=== PATIENT | female | born 1975 | race Two or more races ===

== ENCOUNTER 2019-05-09 08:20 | Inpatient (IN) | payer OTHER ==
[~2019-05-09] VITALS: Ht 167.6 cm; Wt 103.0 kg
[2019-05-09 09:00] VITALS: BP 146/96
[2019-05-09] MEDS ORDERED: TRANEXAMIC ACID 3,000 MG in SODIUM CHLORIDE IRRIG SOLUTION 70 ML IR ONE (09:00)
--- NOTE | 2019-05-09 09:00 | NUR ---
MS TAWER NOTESNOTES RECEIVED PT FROM HOME, PT SCHEDULED FOR DAY SURGERY OF RIGHT TOTAL KNEE ARTHROPLASTY, ARRIVED AT THE UNIT AT 0850. PT A/O X4, AMBULATORY, ACCOMPANIED BY MOTHER. FWW AND CANE PRESENT AT BEDSIDE. PT TOLERATING RA, WITH NO ACUTE RESPIRATORY DISTRESS NOTED. PT STATED SHE WAS NPO SINCE MIDNIGHT. PT DENIES ANY PAIN, CHEST PAIN OR ANY OTHER DISCOMFORT AT THE TIME OF ARRIVAL. ADMISSION HISTORY PROVIDED BY PT. PT REFUSES TO HAVE FLU VACCINE, STATED SHE NEVER HAD IT AND PREFERS NOT TO HAVE IT HERE WELL. PT DENIES ANY CONCERNS AND QUESTIONS AT THE MOMENT. VS STABLE AND RECORDED. SORE THROAT PRESENT AND STARTED 2DAYS AGO, OR RNS MADE AWARE WELL. PT ORIENTED TO ROOM, STAFF, ETC. PT KEPT COMFORTABLE IN BED. CALL LIGHT KEPT WITHIN REACH. PT'S BED PLACED IN LOWEST, LOCEKED POSITION WITH SR X2. WILL CONTINUE PLAN OF CARE.
[2019-05-09] MEDS ORDERED: GABA600T12 PO (09:52)
[2019-05-09] MEDS ORDERED: ATEN50TA PO (09:52)
[2019-05-09] MEDS ORDERED: FENO145T35 PO (09:52)
[2019-05-09] MEDS ORDERED: BUPR8TAB4 SL (09:52)
[2019-05-09] MEDS ORDERED: HUM10VIA SQ (09:52)
[2019-05-09] MEDS ORDERED: SIMV-49 PO (09:52)
[2019-05-09] MEDS ORDERED: BACL10TA PO (09:52)
[2019-05-09] MEDS ORDERED: IBUP-1953 PO (09:52)
[2019-05-09] MEDS ORDERED: OMEP20TA5 PO (09:52)
[2019-05-09] MEDS ORDERED: LISI1TAB28 PO (09:52)
[2019-05-09] MEDS ORDERED: BACITRACIN 50000 UNITS/VIAL ONE (10:30)
--- NOTE | 2019-05-09 11:00 | NUR ---
MS RN NOTES PT LEFT TO GO TO OR AT 1050. CONSENTS SIGNED BY PT. MOTHER PRESRNT AT BEDSIDE AND HAS ALL THE BELONGINGS.
[2019-05-09 11:14] LABS: APPEARANCE,URINE Clear (CLEAR); BILIRUBIN,URINE SMALL (NEGATIVE); BLOOD, URINE Negative Ery/uL (NEGATIVE); COLOR,URINE Yellow (YELLOW); KETONES,URINE Negative (NEGATIVE); LEUKOCYTE ESTERASE ,URINE Negative (NEGATIVE); NITRITE, URINE Negative (NEGATIVE); PROTEIN,URINE Negative (NEGATIVE); UGLUCOSE Negative (NEGATIVE); UROBILINOGEN,URINE 0.2 EU/dL (0.2)
[2019-05-09] MEDS ORDERED: MIDAZOLAM HCL 2 MG/2ML VIAL ONE ×3 (11:18→11:34)
[2019-05-09] MEDS ORDERED: FENTANYL PF 100MCG/2ML AMPUL ONE ×2 (11:18→11:34)
[2019-05-09] MEDS ORDERED: ROCURONIUM BROMIDE 50 MG/5 ML ONE (11:18)
[2019-05-09] MEDS ORDERED: BUPIVACAINE 0.5 % PF 150 MG/30 ML VIAL ONE (12:55)
[2019-05-09] MEDS ORDERED: oxyCODONE IR immediate release 5 MG PO PRN (14:00)
--- NOTE | 2019-05-09 14:53 | NUR ---
MS RN NOTES PT JUST GOT BACK FROM ROR/RECOVERY ROOM. VS TAKEN AND RECORDED. PT A/O X4. ON RA WITH NO ACUTE RESPIRATORY DISTRESS NOTED. PT DENIES ANY PAIN OR DISCOMFORT AT THIS MOMENT. WLL CONTINUE TO MONITOR.
--- NOTE | 2019-05-09 14:55 | NUR ---
MS RN NOTES PER DESTINEE/RN AT RR. IV ANTIBIOTIC WAS GIVEN AT 11 AM.
[2019-05-09] MEDS ORDERED: ONDANSETRON HCL/PF 4 MG/2 ML VIAL IVP PRN (15:00)
[2019-05-09] MEDS ORDERED: IV D5/0.45 NACL 1,000 ML IV PRN (15:00)
[2019-05-09] MEDS ORDERED: DOCUSATE SODIUM 250 MG CAPSULE PO PRN (15:00)
[2019-05-09 16:00] VITALS: BP 119/78
[2019-05-09] MEDS ORDERED: DEXTROSE 50%-WATER 50 ML DISP.SYRIN IV PRN (16:00)
[2019-05-09] MEDS ORDERED: *INSULIN REGULAR(HUMULIN R)HUM 100 UNIT/ML VIAL SQ PRN (16:00)
--- NOTE | 2019-05-09 16:30 | NUR ---
MS RN NOTES RECEIVED MEDICINE DILAUDID VIA OPERATING ROOM ASSISTANT PUMP. PT STATED SHE DOESN'T NEED IT AT THE MOMENT. CALLED AND SPOKE TO DR IRIS MD SAID JUST KEEP IT AND PREPARE IT. PT MIGHT BE IN A LOT OF PAIN IN THE MIDDLE OF THE NIGHT. SD/JC MADE AWARE. AWAITING FOR CENTRAL SUPPLY TO DELIVER THE PUMP. PT MADE AWARE.
[2019-05-09] MEDS: IV NS 0.9% 1,000 ML IV PRN (16:47)
[2019-05-09] MEDS ORDERED: BUPRENORPHINE HCL 4 MG SL SCH (17:00)
[2019-05-09] MEDS: BLOOD SUGAR DIAGNOSTIC 1 EACH STRIP VI SCH ×2 (17:04→22:33)
[2019-05-09] MEDS: INSULIN REGULAR, HUMAN 100 UNIT/ML 3 ML VIAL SQ PRN (17:28)
[2019-05-09] MEDS: GABAPENTIN 300 MG CAPSULE PO SCH (17:29)
[2019-05-09] MEDS: HYDROMORPHONE MDV 30 MG in IV NS 0.9% 15 ML, PCA TOTAL VOLUME 1 BAG IV PRN ×3 (18:01)
[2019-05-09] MEDS: INSULIN NPH/REG 70/30 MIX INJ 100 UNIT/ML VIAL SQ SCH (18:26)
--- NOTE | 2019-05-09 18:30 | NUR ---
MS RN NOTES STARTED FIELD TAX AUDITOR PUMP WITH DILAUDID AT 1800.
[2019-05-09 19:02] LABS: CALCIUM, SERUM 8.4 mg/dL (8.5-10.1); CREATININE 0.7 mg/dL (0.6-1.3); MAGNESIUM 1.7 mg/dL (1.8-2.4); PHOSPHORUS 2.9 mg/dL (2.5-4.9); POTASSIUM 3.1 mmol/L (3.5-5.1)
--- NOTE | 2019-05-09 19:46 | NUR ---
MS RN CLOSING NOTES PT A/O X4,BED REST AT THIS MOMENT, MOTHER AT BEDSIDE.CPM MACHINE AND KNEE BRACE FROM PT AT BEDSIDE. PT TOLERATING RA, WITH NO ACUTE RESPIRATORY DISTRESS NOTED. PT ON ANNUAL GIVING MANAGER PUMP DILAUDID 0.2MG WITH 10MIN LOCK OUT; TOTAL OF 5DOSES GIVEN ON MY SHIFT OR 1MG. RIGHT KNEE DRESSING INTACT, S/P RIGHT TOTAL KNEE ARTHROPLASTY. FC IN PLACE WITH CLEAR YELLOW URINE. PT KEPT COMFORTABLE IN BED. CALL LIGHT KEPT WITHIN REACH. PT'S BED PLACED IN LOWEST, LOCKED POSITION WITH SR X2. ENDORSED TO SONOGRAPHY TECHNOLOGIST NURSE FOR HONG.
--- NOTE | 2019-05-09 19:48 | NUR ---
MS/RN NOTES RECEIVED PT. LYING IN BED. PT. IS AWAKE, ALERT AND ORIENTED X4. BREATHING EVEN AND UNLABORED ON ROOM AIR. NO SOB OR RESPIRATORY DISTRESS NOTED AT THIS TIME. PT. COMPLAINING OF PAIN IN HER RIGHT KNEE. PT. ON QUALITY CLOTH TESTER PUMP ADMINISTERING TO PT. 0.2MG BOLUS WITH 10MIN LOCKOUT. PT. WITH RIGHT FOREARM 20 GAUGE PERIPHERAL IV PRESENT, PATENT AND INTACT ADMINISTERING TO PT. NS @ 125 ML/HR PT. IS POST-OP RIGHT TKA WITH RIGHT LEG POST OP DRESSING PRESENT, CLEAN, DRY AND INTACT. NO BLEEDING OR DRAINAGE NOTED AT THIS TIME. PT. WITH ROD CATHETER PRESENT, PATENT AND INTACT DRAINING CLEAR YELLOW URINE. PT. WITH FAMILY MEMBER PRESENT AT BEDSIDE. BED LOCKED AND IN LOWEST POSITION, SIDE RAILS UP X2, CALL LIGHT WITHIN REACH, WILL CONTINUE TO MONITOR.
[2019-05-09 19:49] LABS: BASOPHILS % (AUTO) 0.1 % (0.0-2.0); HEMATOCRIT 41 % (33-45); HEMOGLOBIN 14.1 g/dL (11.5-14.8); LYMPHOCYTES # (AUTO) 0.9 /CMM (0.8-4.8); LYMPHOCYTES % (AUTO) 6.8 % (20.0-44.0); MEAN CORPUSCULAR HGB CONC 34 g/dl (31.0-36.0); MEAN CORPUSCULAR VOLUME 89 fL (82-100); MONOCYTES # (AUTO) 0.8 /CMM (0.1-1.30); MONOCYTES % (AUTO) 6.1 % (2.0-12.0); NEUTROPHILS # (AUTO) 11.8 /CMM (1.8-8.9); PLATELET COUNT (AUTO) 241 /CMM (150-450); RED BLOOD CELL COUNT(AUTO) 4.64 MIL/uL (4.0-5.2); WHITE BLOOD COUNT (AUTO) 13.6 K/uL (4.3-11.0)
[2019-05-09 20:00] VITALS: BP 136/81
[2019-05-09] MEDS: ANCEF 1 GM/50 ML D5W IV SCH ×2 (20:19)
[2019-05-09] MEDS: HYDROMORPHONE 1 MG/1 ML DISP.SYRIN SQ PRN (20:20)
[2019-05-09] MEDS ORDERED: BISACODYL SUPP (10 MG) 10 MG/SUPP.RECT SUPP.RECT RC PRN (22:00)
[2019-05-09] MEDS ORDERED: ZOLPIDEM TARTRATE 5 MG TABLET PO PRN (22:00)
[2019-05-09] MEDS ORDERED: SENNOSIDES 8.6 MG TABLET PO PRN (22:00)
[2019-05-09] MEDS: SIMVASTATIN 20 MG TABLET PO SCH (22:24)
[2019-05-10] MEDS: IV NS 0.9% 1,000 ML IV PRN ×3 (00:04→20:01)
[2019-05-10] MEDS: HYDROMORPHONE 1 MG/1 ML DISP.SYRIN SQ PRN ×2 (00:15→04:53)
[2019-05-10] MEDS ORDERED: diphenhydrAMINE HCL 25 MG CAPSULE PO PRN (01:30)
[2019-05-10] MEDS ORDERED: MAG HYDROX/AL HYDROX/SIMETH 30 ML UDC PO PRN (01:30)
[2019-05-10] MEDS ORDERED: oxyCODONE IR immediate release 5 MG PO PRN (02:00)
[2019-05-10] MEDS: ANCEF 1 GM/50 ML D5W IV SCH ×2 (04:52)
--- NOTE | 2019-05-10 06:05 | NUR ---
MS/RN NOTES PT. IS LYING IN BED RESTING. BREATHING EVEN AND UNLABORED ON ROOM AIR. NO SOB, RESPIRATORY DISTRESS OR COMPLAINTS OF PAIN NOTED PT. ON COSTUME RENTAL CLERK PUMP ADMINISTERING TO PT. 0.2MG BOLUS WITH 10MIN LOCKOUT. PT. WITH RIGHT FOREARM 20 GAUGE PERIPHERAL IV PRESENT, PATENT AND INTACT ADMINISTERING TO PT. NS @ 125 ML/HR PT. IS POST-OP RIGHT TKA WITH RIGHT LEG POST OP DRESSING PRESENT, CLEAN, DRY AND INTACT. NO BLEEDING OR DRAINAGE NOTED AT THIS TIME. PT. WITH ROD CATHETER PRESENT, PATENT AND INTACT DRAINING CLEAR YELLOW URINE. ALL PT. NEEDS MET. BED LOCKED AND IN LOWEST POSITION, SIDE RAILS UP X2, CALL LIGHT WITHIN REACH, WILL ENDORSE TO DAYSHIFT NURSE FOR CONTINUITY OF CARE.
[2019-05-10] MEDS: BLOOD SUGAR DIAGNOSTIC 1 EACH STRIP VI SCH ×4 (06:38→22:25)
[2019-05-10] MEDS: INSULIN REGULAR, HUMAN 100 UNIT/ML 3 ML VIAL SQ PRN (06:38)
[2019-05-10 06:53] LABS: BASOPHILS % (AUTO) 0.3 % (0.0-2.0); HEMATOCRIT 41 % (33-45); HEMOGLOBIN 13.6 g/dL (11.5-14.8); LYMPHOCYTES # (AUTO) 0.8 /CMM (0.8-4.8); LYMPHOCYTES % (AUTO) 6.9 % (20.0-44.0); MEAN CORPUSCULAR HGB CONC 34 g/dl (31.0-36.0); MEAN CORPUSCULAR VOLUME 88 fL (82-100); MONOCYTES # (AUTO) 0.9 /CMM (0.1-1.30); MONOCYTES % (AUTO) 7.4 % (2.0-12.0); NEUTROPHILS # (AUTO) 10.4 /CMM (1.8-8.9); NEUTROPHILS % (AUTO) 85.4 % (43.0-81.0); PLATELET COUNT (AUTO) 248 /CMM (150-450); RED BLOOD CELL COUNT(AUTO) 4.61 MIL/uL (4.0-5.2); WHITE BLOOD COUNT (AUTO) 12.2 K/uL (4.3-11.0)
[2019-05-10 07:18] LABS: CALCIUM, SERUM 8.2 mg/dL (8.5-10.1); CREATININE 0.7 mg/dL (0.6-1.3); MAGNESIUM 1.6 mg/dL (1.8-2.4); PHOSPHORUS 2.8 mg/dL (2.5-4.9); POTASSIUM 3.3 mmol/L (3.5-5.1)
[2019-05-10 08:00] VITALS: BP 147/82
[2019-05-10] MEDS: PANTOPRAZOLE 40 MG TABLET.DR PO SCH (08:46)
[2019-05-10] MEDS: ASPIRIN 325 MG TABLET PO SCH ×2 (08:46→17:03)
[2019-05-10] MEDS: GABAPENTIN 300 MG CAPSULE PO SCH ×3 (08:47→17:03)
[2019-05-10] MEDS: LISINOPRIL (20MG) 20 MG TABLET PO SCH (08:47)
[2019-05-10] MEDS: FENOFIBRATE NANOCRYS (145 MG) 145 MG TABLET PO SCH (08:47)
[2019-05-10] MEDS: ATENOLOL 50 MG TABLET PO SCH (08:47)
[2019-05-10] MEDS: HYDROCHLOROTHIAZIDE 25 MG TABLET PO SCH (08:48)
[2019-05-10] MEDS: INSULIN NPH/REG 70/30 MIX INJ 100 UNIT/ML VIAL SQ SCH ×2 (08:52→18:39)
[2019-05-10] MEDS ORDERED: FAMOTIDINE (20 MG) 20 MG TABLET PO SCH (09:00)
[2019-05-10] MEDS ORDERED: POTASSIUM CHLORIDE 20 MEQ TAB.PRT.SR PO SCH (11:30)
--- NOTE | 2019-05-10 11:30 | NUR ---
patient prefer to use DIRECTOR SMB SALES machine tomorrow.
[2019-05-10] MEDS: Magnesium 1GM/D5W 100ML PREMIX 100 ML IV SCH ×2 (11:47→13:31)
[2019-05-10 12:00] VITALS: BP 140/84
[2019-05-10] MEDS ORDERED: Magnesium 1GM/D5W 100ML PREMIX 100 ML IV SCH (12:00)
--- NOTE | 2019-05-10 15:10 | NUR ---
patient's pain well tolerated with oral pain meds. Will inform Dr. Barger if HOG RINGER pump can be D/C.
[2019-05-10 16:00] VITALS: BP 140/84
--- NOTE | 2019-05-10 16:00 | NUR ---
patient seen by Concepcion CAMEJO. Patient ask not to remove F/C until tomorrow morning. Per Concepcion CAMEJO remove F/C tomorrow morning.
[2019-05-10] MEDS: HYDROMORPHONE MDV 30 MG in IV NS 0.9% 15 ML, PCA TOTAL VOLUME 1 BAG IV PRN ×3 (18:27)
--- NOTE | 2019-05-10 18:30 | NUR ---
hydromorphone iv bag changed. Documentation signed, rest of medication waisted in med room, witnessed by Natalie MCCOY. Patient use 6.6 ml during the shift
--- NOTE | 2019-05-10 19:07 | NUR ---
Patient in bed resting comfortably, mother at bedside. All needs attended, pain was managed well. All needs attended. Will endorse to next shift for HONG.
--- NOTE | 2019-05-10 19:15 | NUR ---
MS/RN NOTES RECEIVED PT. SITTING UP IN BED. PT. IS AWAKE, ALERT AND ORIENTED X4. BREATHING EVEN AND UNLABORED ON ROOM AIR. NO SOB, RESPIRATORY DISTRESS OR COMPLAINTS OF PAIN NOTED AT THIS TIME. PT. ON LSAT INSTRUCTOR PUMP ADMINISTERING TO PT. 0.2MG BOLUS WITH 10MIN LOCKOUT. PT. WITH RIGHT FOREARM 20 GAUGE PERIPHERAL IV PRESENT, PATENT AND INTACT ADMINISTERING TO PT. NS @ 125 ML/HR PT. IS S/P RIGHT TKA WITH RIGHT LEG POST OP DRESSING PRESENT, CLEAN, DRY AND INTACT. NO BLEEDING OR DRAINAGE NOTED AT THIS TIME. PT. WITH ROD CATHETER PRESENT, PATENT AND INTACT DRAINING CLEAR YELLOW URINE. PT. WITH FAMILY MEMBER PRESENT AT BEDSIDE. BED LOCKED AND IN LOWEST POSITION, SIDE RAILS UP X2, CALL LIGHT WITHIN REACH, WILL CONTINUE TO MONITOR.
[2019-05-10 20:00] VITALS: BP 135/88
[2019-05-10] MEDS: ACETAMINOPHEN 325 MG TABLET PO PRN (20:01)
[2019-05-10] MEDS: SIMVASTATIN 20 MG TABLET PO SCH (22:21)
[2019-05-11] MEDS: ACETAMINOPHEN 325 MG TABLET PO PRN ×3 (05:40→23:51)
--- NOTE | 2019-05-11 06:08 | NUR ---
MS/RN NOTES PT. IS SITTING UP IN BED RESTING. BREATHING EVEN AND UNLABORED ON ROOM AIR. NO SOB, RESPIRATORY DISTRESS OR COMPLAINTS OF PAIN NOTED AT THIS TIME. PT. WITH RIGHT FOREARM 20 GAUGE PERIPHERAL IV PRESENT, PATENT AND INTACT ADMINISTERING TO PT. NS @ 125 ML/HR. PT. ON FIELD INSPECTOR PUMP ADMINISTERING TO PT. 0.2MG BOLUS WITH 10MIN LOCKOUT. PT. WITH RIGHT LEG POST OP DRESSING PRESENT, CLEAN, DRY AND INTACT. NO BLEEDING OR DRAINAGE NOTED AT THIS TIME AND THROUGHOUT SHIFT. PT. WITH ROD CATHETER PRESENT, PATENT AND INTACT DRAINING CLEAR YELLOW URINE. ALL PT. NEEDS MET. BED LOCKED AND IN LOWEST POSITION, SIDE RAILS UP X2, CALL LIGHT WITHIN REACH, WILL ENDORSE TO DAYSHIFT NURSE FOR CONTINUITY OF CARE.
[2019-05-11] MEDS: IV NS 0.9% 1,000 ML IV PRN ×3 (06:34→23:07)
[2019-05-11] MEDS: BLOOD SUGAR DIAGNOSTIC 1 EACH STRIP VI SCH ×4 (06:43→21:58)
[2019-05-11 06:44] LABS: CALCIUM, SERUM 8.6 mg/dL (8.5-10.1); CREATININE 0.7 mg/dL (0.6-1.3); MAGNESIUM 1.7 mg/dL (1.8-2.4); POTASSIUM 3.3 mmol/L (3.5-5.1)
--- NOTE | 2019-05-11 07:00 | NUR ---
MS/RN NOTES PT. RECEIVED 5.6MG OF DILAUDID VIA DIRECTOR WORKFORCE MANAGEMENT THROUGHOUT SHIFT.
--- NOTE | 2019-05-11 07:30 | NUR ---
MS/RN NOTES RECEIVED PT. IN BED RESTING COMFORTABLY IN MODERATE HIGH BACK REST. BREATHING EVEN AND UNLABORED ON ROOM AIR. NO SOB, RESPIRATORY DISTRESS OR COMPLAINTS OF PAIN NOTED AT THIS TIME. PT. WITH RIGHT FOREARM 20 GAUGE PERIPHERAL IV PRESENT, PATENT AND INTACT ADMINISTERING TO PT. NS @ 125 ML/HR. PT. ON WANT AD RECEIVER PUMP ADMINISTERING TO PT. 0.2MG BOLUS WITH 10MIN LOCKOUT. PT. WITH RIGHT LEG POST OP DRESSING PRESENT, CLEAN, DRY AND INTACT. NO BLEEDING OR DRAINAGE NOTED AT THIS TIME. PT. WITH ROD CATHETER PRESENT, PATENT AND INTACT DRAINING CLEAR YELLOW URINE. SAFETY MEASURES IN PLACE, BED LOCKED AND IN LOWEST POSITION, SIDE RAILS UP X2, CALL LIGHT WITHIN REACH, WILL CONTINUE TO MONITOR.
[2019-05-11 08:00] VITALS: BP 143/74
[2019-05-11] MEDS: INSULIN NPH/REG 70/30 MIX INJ 100 UNIT/ML VIAL SQ SCH ×2 (08:00→17:20)
[2019-05-11] MEDS: ASPIRIN 325 MG TABLET PO SCH ×2 (08:35→16:28)
[2019-05-11] MEDS: PANTOPRAZOLE 40 MG TABLET.DR PO SCH (08:35)
[2019-05-11] MEDS: FENOFIBRATE NANOCRYS (145 MG) 145 MG TABLET PO SCH (08:35)
[2019-05-11] MEDS: GABAPENTIN 300 MG CAPSULE PO SCH ×3 (08:35→16:28)
[2019-05-11] MEDS: HYDROCHLOROTHIAZIDE 25 MG TABLET PO SCH (08:36)
[2019-05-11] MEDS: ATENOLOL 50 MG TABLET PO SCH (08:37)
[2019-05-11] MEDS: LISINOPRIL (20MG) 20 MG TABLET PO SCH (08:37)
--- NOTE | 2019-05-11 10:00 | NUR ---
MS RN NOTES ROD CATHETER WAS REMOVED, NO COMPLAIN OF PAIN, NOT IN ANY DISTRESS, V/S WNL. WILL CONTINUE TO MONITOR.
[2019-05-11] MEDS ORDERED: POTASSIUM CHLORIDE 20 MEQ TAB.PRT.SR PO SCH (11:00)
[2019-05-11] MEDS: Magnesium 1GM/D5W 100ML PREMIX 100 ML IV SCH ×2 (11:07→12:03)
--- NOTE | 2019-05-11 11:47 | NUR ---
MS RN NOTES PATIENT BS IS 136, PATIENT REFUSED INSULIN EVEN AFTER EXPLAINING THE RISKS AND BENEFITS. WILL CONTINUE TO MONITOR.
[2019-05-11 15:44] VITALS: BP 132/76
[2019-05-11] MEDS ORDERED: KEY,NONCONTROL,TO KEEP IN PYXI 1 EA MC ONE (18:36)
--- NOTE | 2019-05-11 18:50 | NUR ---
MS/RN NOTES PT. RECEIVED 4.2MG OF DILAUDID VIA SIDE DOOR MAN, DC SIDE DOOR MAN PUMP AND WASTED 22ML.
--- NOTE | 2019-05-11 19:15 | NUR ---
MS RN NOTES Patient in bed resting comfortably, mother at bedside. All needs attended, pain was managed well. All needs attended. endorsed to next shift for HONG.
--- NOTE | 2019-05-11 19:20 | NUR ---
RN OPENING NOTES RECEIVED PATIENT FROM [facility], IN BED RESTING COMFORTABLY WITH FAMILY AT BED SIDE. A/O X 4, ABLE TO STATE NEEDS CLEARLY. NO SIGNS OF RESPIRATORY DISTRESS. PATIENT DENIES SHORTNESS OF BREATH. NO COMPLAINTS OF PAIN AT THIS TIME. RIGHT FOREARM #20G INTACT AND PATENT, NO INFECTION/INFILTRATION WITH ONLY NS RUNNING AT 125 ML/HR. RIGHT LEG DRESSING PRESENT: CLEAN, DRY, INTACT, NO ACTIVE BLEEDING OR DRAINAGE NOTED AT THIS TIME. PATIENT AMBULATORY WITH ASSISTANCE WITH A WALKER. WILL ANTICIPATE NEEDS AND MANAGE PAIN. SAFETY PRECAUTIONS IMPLEMENTED; CALL LIGHT WITHIN REACH, BED LOWEST POSITION, BED LOCKED, SIDE RAILS UP X2. WILL CONTINUE TO MONITOR.
[2019-05-11 20:00] VITALS: BP 115/65
[2019-05-11] MEDS: SIMVASTATIN 20 MG TABLET PO SCH (21:01)
--- NOTE | 2019-05-11 22:13 | NUR ---
RN NOTES BLOOD SUGAR 132. 2 UNITS OF REGULAR INSULIN GIVEN IN RLQ. PATIENT ATE SNACKS POST INJECTION.
--- NOTE | 2019-05-11 23:52 | NUR ---
RN NOTES PATIENT REQUESTED TYLENOL FOR HEADACHE 09/12. WILL CONTINUE TO MONITOR.
--- NOTE | 2019-05-12 06:50 | NUR ---
RN CLOSING NOTES PATIENT IS CURRENTLY RESTING IN BED COMFORTABLY, EASILY AROUSABLE TO VOICE. NO SIGNS OF RESPIRATORY DISTRESS. BREATHING EVEN AND UNLABORED, TOLERATING ROOM AIR, NO SHORTNESS OF BREATH NOTED. NO COMPLAINTS OF PAIN AT THIS TIME. PATIENT WITH RIGHT FOREARM #20G INTACT AND PATENT, NO INFECTION/INFILTRATION NOTED WITH ONLY NS RUNNING AT 125 ML/HR THROUGHOUT THE NIGHT. PATIENT WITH RIGHT LEG POST OP DRESSING PRESENT, CLEAN, DRY, AND INTACT, WITH NO ACTIVE BLEEDING OR DRAINAGE NOTED AT THIS TIME AND THROUGHOUT THE SHIFT. ALL NEEDS MET AT THIS TIME. SAFETY PRECAUTIONS IMPLEMENTED; CALL LIGHT WITHIN REACH, BED LOWEST POSITION, BED LOCKED, SIDE RAILS UP X2. WILL ENDORSE TO DAYSHIFT NURSE FOR CONTINUITY OF CARE.
--- NOTE | 2019-05-12 07:30 | NUR ---
RN OPENING NOTES RECEIVED PATIENT IN THE ROOM, PATIENT IN THE RESTROOM. NOT IN ANY FORM OF DISTRESS, NO SOB, DENIED PAIN OR DISCOMFORT AT THIS TIME.IV ACCESS IN TACT AND PATENT KEPT PATIENT SAFE AND COMFORTABLE. BED IN LOW/LOCKED POSITION, SIDERAILS UPX2,CALL LIGHT IN REACH. WILL CONTINUE TO MONITOR ACCORDINGLY.
[2019-05-12 08:00] VITALS: BP 127/79
[2019-05-12 08:01] LABS: CALCIUM, SERUM 8.5 mg/dL (8.5-10.1); CREATININE 0.6 mg/dL (0.6-1.3); MAGNESIUM 1.8 mg/dL (1.8-2.4); POTASSIUM 3.7 mmol/L (3.5-5.1)
--- NOTE | 2019-05-12 08:17 | NUR ---
RN NOTES DR DUNN AT BEDSIDE TALKING TO PATIENT. PER , OK FOR DISCHARGE FROM HIS STANDPOINT. F/U WITH ORTHO FOR CLEARANCE. NO HEMATOLOGY FOR TODAY. MD TERRELL RAO. ASKED MD IF WE NEED CBC TODAY. PER , "NO, IT'S OK"
[2019-05-12] MEDS: GABAPENTIN 300 MG CAPSULE PO SCH ×2 (08:34→14:02)
[2019-05-12] MEDS: ASPIRIN 325 MG TABLET PO SCH (08:35)
[2019-05-12] MEDS: FENOFIBRATE NANOCRYS (145 MG) 145 MG TABLET PO SCH (08:35)
[2019-05-12] MEDS: LISINOPRIL (20MG) 20 MG TABLET PO SCH (08:35)
[2019-05-12] MEDS: HYDROCHLOROTHIAZIDE 25 MG TABLET PO SCH (08:35)
[2019-05-12 08:36] VITALS: BP 127/79
[2019-05-12] MEDS: PANTOPRAZOLE 40 MG TABLET.DR PO SCH (08:36)
[2019-05-12] MEDS: ATENOLOL 50 MG TABLET PO SCH (08:36)
[2019-05-12] MEDS: BLOOD SUGAR DIAGNOSTIC 1 EACH STRIP VI SCH ×2 (08:38→12:36)
[2019-05-12] MEDS: INSULIN NPH/REG 70/30 MIX INJ 100 UNIT/ML VIAL SQ SCH (08:43)
[2019-05-12] MEDS ORDERED: MAGNESIUM HYDROXIDE 30 ML UDC PO ONE (09:44)
[2019-05-12] MEDS ORDERED: MAGNESIUM HYDROXIDE 30 ML UDC PO PRN (10:00)
--- NOTE | 2019-05-12 10:24 | NUR ---
rn notes: ortho clearance NELL aparicio ortho at bedside, changing dressing. per guanako, patient ok to discharge home with homehealth.
--- NOTE | 2019-05-12 16:07 | NUR ---
discharged patient in stable condition picked up by family, accompanied by family. discharged instructions given, verbalized understanding. provided with dc paperwork and educational materials. all belongings returned. forms signed. provided with walker for home use, homehealth PT will follow. iv access removed, no complications. photos taken.
== END 2019-05-12 15:30 | disposition home health service (06) | DRG 302 ==
LOC: DS 08:20 → MED 08:22
PROVIDERS: ADMIT Registered Nurse; ATTEND Internal Medicine
PROC: 0SRC0J9 Replacement of Right Knee Joint with Synthetic Substitute, Cemented, Open Approach (ICD-10-PCS; principal; 2019-05-09)
DX: M17.31 Unilateral post-traumatic osteoarthritis, right knee (principal); E11.42 Type 2 diabetes mellitus with diabetic polyneuropathy; E78.5 Hyperlipidemia, unspecified; G89.29 Other chronic pain; I10 Essential (primary) hypertension; K21.9 Gastro-esophageal reflux disease without esophagitis; T14.90XS Injury, unspecified, sequela; X58.XXXS Exposure to other specified factors, sequela; M54.2 Cervicalgia; K29.70 Gastritis, unspecified, without bleeding; E66.01 Morbid (severe) obesity due to excess calories; Z68.36 Body mass index [BMI] 36.0-36.9, adult; M53.87 Other specified dorsopathies, lumbosacral region; F11.20 Opioid dependence, uncomplicated
CPT/HCPCS: 36415; 80048-TC; 81000-TC; 82962-TC; 83735-TC; 84100-TC; 84703-TC; 85025-TC; 86850-TC; 87081-TC; 88305-TC; 88311-TC; 97110-TC; 97112-TC; 97116-TC; 97530-TC; 97760-TC; A4216; A4217; C1713; C1776; G0378; J0690; J1170; J1815; J2250; J2704; J3010; J3475; J3490; J7030; J7060; L1830